=== PATIENT | female | born 1990 | race Caucasian/White ===

== ENCOUNTER 2019-12-07 04:16 | Day surgery (SDC) | payer BC ==
[2019-12-05 15:55] VITALS: BMI 29.0
[2019-12-07] MEDS ORDERED: PROPOFOL 20 ML ONE ×3 (09:04→12:06)
[2019-12-07] MEDS ORDERED: MIDAZOLAM HCL 2 MG/2 ML SINGLE DOSE VIAL ONE (09:04)
--- NOTE | 2019-12-07 10:09 | HP ---
History & Physical Update - History History: No Change (Uterine mass, possible polyp.) - Physical Physical: No Change - Assessment Assessment: No Change - Plan Plan: No Change (Hysteroscopy, excision of uterine mass, D&C.)
[2019-12-07] MEDS ORDERED: ceFAZolin SODIUM 1 GM VIAL IVPB ONE (10:25)
[2019-12-07] MEDS ORDERED: ONDANSETRON 4 MG/2 ML VIAL IVPUSH PRN (10:27)
[2019-12-07] MEDS ORDERED: oxyCODONE HCL 5 MG TABLET PO PRN ×2 (10:27)
[2019-12-07] MEDS ORDERED: LACTATED RINGERS SOLUTION 1,000 ML IV SCH (10:30)
--- NOTE | 2019-12-07 11:14 | OP ---
Operative Note - Note: Operative Date: 12/07/19 Pre-Operative Diagnosis: Endometrial polyp Operation: Hysteroscopy, polypectomy, D&C Findings: Uterus was sounded to 10cm. Several endometrial polyps, both Fallopian tube ostia were visualized. Post-Operative Diagnosis: Same as Pre-op Surgeon: Eliceo Recinos Anesthesiologist/MANAGER OF COMPLIANCE: Naresh Ivan Anesthesia: General Specimens Removed: Endometrial polyps, endometrial curettings Estimated Blood Loss (mls): 10 Blood Volume Replaced (mls): 0 Fluid Volume Replaced (mls): 800 Operative Report Dictated: Yes
--- NOTE | 2019-12-07 11:56 | OP ---
DATE OF OPERATION: 12/07/2019 PREOPERATIVE DIAGNOSIS: Endometrial polyp. POSTOPERATIVE DIAGNOSIS: Endometrial polyp. PROCEDURE: Hysteroscopy, polypectomy, dilation and curettage. SURGEON: Calros Recinos MD ANESTHESIOLOGIST: Naresh Ivan MD ANESTHESIA: General. COMPLICATIONS: None. ESTIMATED BLOOD LOSS: 10 mL. INTRAVENOUS FLUIDS: 800 mL. PATHOLOGY: Endometrial polyps, endometrial curettings. FINDINGS: Examination under anesthesia revealed an anteverted uterus with no pelvic or adnexal masses. The uterus was noted to be freely mobile within the pelvis. Hysteroscopy revealed a slightly enlarged uterine cavity. The uterus sounded to 10 cm. During hysteroscopy, several endometrial polyps were noted. Both fallopian tube ostia were visualized and appeared to be within normal limits. PROCEDURE DESCRIPTION: The patient was met preoperatively. The risks, benefits, alternatives of surgery were discussed in detail. The consent form was reviewed and discussed. All questions were answered. The patient verbalized her understanding and requested to proceed with the surgery. The patient was then brought to the OR with the IV running. She was placed on the surgical table in the supine position. General anesthesia was achieved without difficulty. The patient was then placed in a dorsal lithotomy position using adjustable David stirrups. She was examined under anesthesia, with the findings as described above. The patient was prepped and draped in the usual sterile fashion. The timeout procedure was conducted as per standard protocol. A weighted speculum was then inserted inside the vagina, with good visualization of the cervix. The cervix was grasped with a single-tooth tenaculum. The internal cervical os was dilated gently to accommodate a size 13 Beard dilator. A small diagnostic hysteroscope was gently introduced inside the uterine cavity, with the findings as described above. The uterus was then sounded to 10 cm. The cervical os was then dilated to accommodate a size 23 Beard dilator. A Symphion hysteroscope was introduced into the endometrial cavity. The Symphion hysteroscope was used to resect the endometrial polyps completely. Once this was accomplished, the hysteroscope was removed from the patient. A gentle uterine curettage was performed. All of the tissue was collected and sent to pathology for evaluation. The instruments were removed from the patient. Good hemostasis was noted. The sponge, lap, instrument counts were correct. The patient was returned to supine position. She was transferred to recovery room in stable condition and awake. CARLOSLetty [id number]
[2019-12-07 13:30] VITALS: TEMP 97.7
[2019-12-07 14:21] VITALS: BP 126/74; PULSE 78
--- NOTE | 2019-12-10 17:27 | PATH ---
Surgical Pathology Report Patient Name: HAJA CARMONA [facility]. Rec. #: [id number] /Age/Gender: 1990 (Age: 29) / F Account: [id number] Location: [facility] SURGICAL Taken: 12/07/2019 Received: 12/07/2019 Reported: 12/10/2019 Physicians: Eliceo Recinos M.D. Specimen(s) Received A: ENDOMETRIAL POLYP B: ENDOMETRIAL CURETTINGS Clinical History Polyp of corpus uteri Final Diagnosis A. ENDOMETRIAL POLYP, POLYPECTOMY: POLYPOID FRAGMENTS OF SECRETORY ENDOMETRIUM, BENIGN ENDOCERVICAL TISSUE, AND FIBROMUSCULAR TISSUE. B. ENDOMETRIAL CURETTINGS, DILATION AND CURETTAGE: POLYPOID FRAGMENTS OF SECRETORY ENDOMETRIUM. Electronically Signed Padmini Boggs M.D. Gross Description A. Received in formalin labeled "endometrial polyp," is a 4.2 x 3.7 x 0.5 cm aggregate of conrad soft tissue fragments. The formalin is filtered and the specimen is entirely submitted in 3 cassettes. B. Received in formalin labeled "endometrial curettings," is a 3.8 x 2.0 x 0.4 cm aggregate of conrad red soft tissue fragments admixed with blood clot. The formalin is filtered and the specimen is entirely submitted in 2 cassettes. 12/07/2019 [facility]12/07/2019
== END 2019-12-07 14:21 | disposition home or self-care (01) ==
LOC: JASU-SURG 04:16
PROVIDERS: ATTEND Obstetrics & Gynecology
PROC: 0UB98ZX Excision of Uterus, Via Natural or Artificial Opening Endoscopic, Diagnostic (ICD-10-PCS; principal; 2019-12-07 10:00)
PROC: 0UDB7ZX Extraction of Endometrium, Via Natural or Artificial Opening, Diagnostic (ICD-10-PCS; 2019-12-07 10:00)
DX: N84.0 Polyp of corpus uteri (principal)
CPT/HCPCS: 36415; 84703; 86850; 86900; 86901; 88305-TC; 94760

== ENCOUNTER 2021-06-28 16:15 | Inpatient (IN) | payer BC, OTHER ==
[2021-06-28 17:40] LABS: HEMATOCRIT 33.6 % (32.4-45.2); HEMOGLOBIN 11.1 GM/dL (10.7-15.3); MCH 22.4 pg (25.7-33.7); MEAN CELL VOLUME 67.9 fl (80-96); MEAN PLT VOLUME 7.7 fl (7.5-11.1); PLATELET COUNT 327 10^3/uL (134-434); RBC 4.95 M/mm3 (3.60-5.2); WHITE BLOOD COUNT 8.6 K/mm3 (4.0-10.0)
[2021-06-28 17:54] LABS: CALCIUM 8.3 mg/dL (8.5-10.1)
[2021-06-28 17:55] LABS: ALBUMIN 2.2 g/dl (3.4-5.0)
[2021-06-28 17:57] LABS: EPI CELLS 28 /uL (0-25.1); HYALINE CASTS 10 /uL (0-3.1); URIC ACID 6.7 mg/dL (2.6-7.2); URINE APPEARANCE CLEAR; URINE BACTERIA 7049 /uL (0-1359); URINE BILIRUBIN NEGATIVE (NEGATIVE); URINE COLOR YELLOW; URINE GLUCOSE (UA) NEGATIVE (NEGATIVE); URINE KETONE TRACE (NEGATIVE); URINE LEUK ESTERASE NEGATIVE (NEGATIVE); URINE NITRITE NEGATIVE (NEGATIVE); URINE PROTEIN 2+ (NEGATIVE); URINE RBC 27 /uL (0-23.9); URINE UROBILINOGEN 0.2 mg/dL (0.2-1.0)
[2021-06-28 17:58] LABS: CREATININE 0.7 mg/dL (0.55-1.3)
[2021-06-28 17:59] LABS: BILIRUBIN,TOTAL 0.2 mg/dL (0.2-1)
[2021-06-28 18:00] LABS: TOT PROT 5.9 g/dl (6.4-8.2)
[2021-06-28 19:09] VITALS: BMI 32.1
[2021-06-28] MEDS: ELECTROLYTE-148 SOLN 1,000 ML IV SCH (20:30)
[2021-06-28 20:34] LABS: INR 1.03 (0.83-1.09); PROTHROMBIN TIME (PATIENT) 11.9 SEC (9.7-13.0)
[2021-06-28 20:35] LABS: ACTIVATED PTT 25.9 SECONDS (25.2-36.5)
[2021-06-28] MEDS ORDERED: MAGNESIUM 4GM/H20 - 4 GM/100 ML IVPB IVPB SCH (21:00)
[2021-06-28] MEDS ORDERED: OXYTOCIN 30 UNITS in 0.9% NS 30 UNIT/500 ML INFUS.BAG IVPB ONE (21:25)
[2021-06-28] MEDS ORDERED: MAGNESIUM 4GM/H20 - 4 GM/100 ML IVPB IVPB ONE (21:25)
[2021-06-28] MEDS ORDERED: OXYTOCIN 30 UNITS in 0.9% NS 30 UNIT/500 ML INFUS.BAG IVPB SCH (21:45)
[2021-06-28] MEDS ORDERED: MAGNESIUM SULFATE 20GM/500ML - 20 GM/500 ML INFUS.BAG ONE (22:40)
[2021-06-28] MEDS: MAGNESIUM SULFATE 20GM/500ML - 20 GM/500 ML INFUS.BAG IV SCH (22:45)
[2021-06-29] MEDS ORDERED: AMPICILLIN - 2 GM in SODIUM CHLORIDE 100 ML IVPB ONE (01:29)
[2021-06-29] MEDS ORDERED: AMPICILLIN SODIUM 2 GM VIAL ONE (02:10)
[2021-06-29] MEDS ORDERED: AMPICILLIN SODIUM 1 GM VIAL ONE ×2 (05:05→09:02)
[2021-06-29] MEDS: AMPICILLIN - 1 GM in SODIUM CHLORIDE 100 ML IVPB SCH ×3 (05:15→14:54)
[2021-06-29] MEDS: ELECTROLYTE-148 SOLN 1,000 ML IV SCH ×2 (06:00→07:00)
[2021-06-29 11:13] LABS: POC NITRAZINE POS
[2021-06-29] MEDS ORDERED: morphine SULFATE/PF 1 MG/2 ML (2cc Syringe - QUVA) ONE (13:56)
[2021-06-29] MEDS ORDERED: SUCCINYLCHOLINE CHLORIDE 200 MG/10 ML SYRINGE ONE (13:57)
[2021-06-29] MEDS ORDERED: PROPOFOL 20 ML ONE (13:57)
[2021-06-29] MEDS ORDERED: ACETAMINOPHEN 325 MG TABLET (FP) PO PRN (15:36)
[2021-06-29] MEDS ORDERED: SENNOSIDES/DOCUSATE COMBO (SENNA PLUS) TABLET (UD) PO PRN (15:36)
[2021-06-29] MEDS ORDERED: IBUPROFEN 800 MG/8 ML IJ IVPB PRN (15:36)
[2021-06-29] MEDS ORDERED: CITRIC ACID/SODIUM CITRATE 30 ML UNIT-DOSE CUP PO ONE (15:40)
[2021-06-29 16:08] LABS: CORD BASE EXCESS -3.9 mmol/L (0-2); CORD pH 7.361 (7.14-7.44)
[2021-06-29 16:40] LABS: CORD HCO3 22.8 mmHg (20-29); CORD PCO2 52.7 mmHg (30-78); CORD pH 7.254 (7.14-7.44)
[2021-06-29] MEDS ORDERED: IBUPROFEN 800 MG/8 ML IJ IVPB ONE (17:08)
[2021-06-29] MEDS ORDERED: OXYTOCIN 20 UNITS in 0.9% NS 20 UNIT/1,000 ML INFUS.BAG IV ONE (17:09)
[2021-06-29] MEDS: OXYTOCIN 20 UNITS in 0.9% NS 20 UNIT/1,000 ML INFUS.BAG IV SCH (17:20)
[2021-06-29] MEDS ORDERED: ACETAMINOPHEN INJECTION 100 ML IVPB ONE (19:05)
[2021-06-29 19:06] LABS: SARS-CoV-2 NAA Not Detected (Not Detected)
[2021-06-29] MEDS ORDERED: ACETAMINOPHEN 1000 MG/100 ML BAG IVPB ONE (19:15)
[2021-06-29] MEDS ORDERED: MAGNESIUM SULFATE 20GM/500ML - 20 GM/500 ML INFUS.BAG ONE (20:15)
[2021-06-29] MEDS: MAGNESIUM SULFATE 20GM/500ML - 20 GM/500 ML INFUS.BAG IV SCH (21:00)
[2021-06-30] MEDS ORDERED: oxyCODONE HCL 5 MG TABLET ONE (05:07)
[2021-06-30] MEDS: oxyCODONE HCL 5 MG TABLET PO PRN ×2 (05:11→20:06)
[2021-06-30] MEDS ORDERED: OXYTOCIN 20 UNITS in 0.9% NS 20 UNIT/1,000 ML INFUS.BAG IV ONE (07:20)
[2021-06-30] MEDS: OXYTOCIN 20 UNITS in 0.9% NS 20 UNIT/1,000 ML INFUS.BAG IV SCH ×2 (07:33→17:28)
[2021-06-30] MEDS ORDERED: IBUPROFEN 600 MG TABLET (FP) PO ONE ×2 (10:15→15:18)
[2021-06-30] MEDS: IBUPROFEN 600 MG TABLET (FP) PO PRN ×3 (10:21→22:35)
[2021-06-30] MEDS: PRENATAL VITAMINS W/ FOLIC ACID TABLET (FP) PO SCH (10:50)
[2021-06-30] MEDS: ENOXAPARIN NA (PORCINE) 40 MG/0.4 ML DISP.SYRIN SQ SCH (10:57)
[2021-06-30 11:42] LABS: BASO % 0.2 % (0-2.0); EOS % 0.1 % (0-4.5); HEMOGLOBIN 10.5 GM/dL (10.7-15.3); LYMPH % 18.4 % (8-40); MCH 21.5 pg (25.7-33.7); MCHC 31.8 g/dl (32.0-36.0); MEAN CELL VOLUME 67.6 fl (80-96); MEAN PLT VOLUME 7.3 fl (7.5-11.1); MONO % 4.1 % (3.8-10.2); NEUT % 77.2 % (42.8-82.8); PLATELET COUNT 282 10^3/uL (134-434); RBC 4.89 M/mm3 (3.60-5.2); RDW 16.8 % (11.6-15.6); WHITE BLOOD COUNT 11.7 K/mm3 (4.0-10.0)
[2021-06-30 13:22] LABS: ANISOCYTOSIS 1+; MACROCYTOSIS 0
[2021-06-30 13:52] LABS: PLATELET ESTIMATE ADEQUATE
[2021-06-30] MEDS ORDERED: BISACODYL 10 MG SUPP.RECT RC PRN (15:36)
[2021-06-30] MEDS: SIMETHICONE 80 MG TAB.CHEW (FP) PO PRN (20:07)
[2021-06-30] MEDS: ELECTROLYTE-148 SOLN 1,000 ML IV SCH (23:41)
[2021-07-01] MEDS: NIFEdipine E.R. 30 MG TABLET PO SCH ×2 (08:08→10:22)
[2021-07-01] MEDS: PRENATAL VITAMINS W/ FOLIC ACID TABLET (FP) PO SCH (09:36)
[2021-07-01] MEDS: IBUPROFEN 600 MG TABLET (FP) PO PRN ×3 (09:37→20:07)
[2021-07-01] MEDS: SIMETHICONE 80 MG TAB.CHEW (FP) PO PRN ×3 (09:38→20:07)
[2021-07-01] MEDS: ENOXAPARIN NA (PORCINE) 40 MG/0.4 ML DISP.SYRIN SQ SCH (09:38)
[2021-07-02] MEDS: IBUPROFEN 600 MG TABLET (FP) PO PRN (02:38)
[2021-07-02 09:19] LABS: BASO % 0.3 % (0-2.0); EOS % 1.5 % (0-4.5); HEMATOCRIT 30.7 % (32.4-45.2); HEMOGLOBIN 9.7 GM/dL (10.7-15.3); LYMPH % 30.7 % (8-40); MCH 21.5 pg (25.7-33.7); MCHC 31.8 g/dl (32.0-36.0); MEAN CELL VOLUME 67.7 fl (80-96); MEAN PLT VOLUME 7.5 fl (7.5-11.1); MONO % 5.6 % (3.8-10.2); NEUT % 61.9 % (42.8-82.8); PLATELET COUNT 298 10^3/uL (134-434); RBC 4.53 M/mm3 (3.60-5.2); RDW 17.1 % (11.6-15.6); WHITE BLOOD COUNT 10.1 K/mm3 (4.0-10.0)
[2021-07-02] MEDS: ENOXAPARIN NA (PORCINE) 40 MG/0.4 ML DISP.SYRIN SQ SCH (10:12)
[2021-07-02] MEDS: PRENATAL VITAMINS W/ FOLIC ACID TABLET (FP) PO SCH (10:13)
[2021-07-02] MEDS: NIFEdipine E.R. 30 MG TABLET PO SCH (10:13)
[2021-07-02] MEDS: oxyCODONE HCL 5 MG TABLET PO PRN ×2 (14:55→21:01)
[2021-07-02] MEDS: SIMETHICONE 80 MG TAB.CHEW (FP) PO PRN (21:00)
[2021-07-03 08:05] VITALS: BP 139/98
[2021-07-03] MEDS: ENOXAPARIN NA (PORCINE) 40 MG/0.4 ML DISP.SYRIN SQ SCH (09:02)
[2021-07-03] MEDS: PRENATAL VITAMINS W/ FOLIC ACID TABLET (FP) PO SCH (09:03)
[2021-07-03] MEDS: NIFEdipine E.R. 30 MG TABLET PO SCH (09:03)
[2021-07-03] MEDS: IBUPROFEN 600 MG TABLET (FP) PO PRN (09:49)
[2021-07-03 12:47] VITALS: PULSE 106; TEMP 98.1
== END 2021-07-03 15:45 | disposition home or self-care (01) | DRG 788 ==
LOC: JDEL 16:15 → JLDR 18:15 → J3W 06-30 17:30
PROVIDERS: ADMIT Obstetrics & Gynecology; ATTEND Obstetrics & Gynecology
PROC: 10D00Z1 Extraction of Products of Conception, Low, Open Approach (ICD-10-PCS; principal; 2021-06-29)
DX: O14.14 Severe pre-eclampsia complicating childbirth (principal); O36.5930 Maternal care for other known or suspected poor fetal growth, third trimester, not applicable or unspecified; O42.013 Preterm premature rupture of membranes, onset of labor within 24 hours of rupture, third trimester; O61.0 Failed medical induction of labor; O99.214 Obesity complicating childbirth; E66.9 Obesity, unspecified; Z3A.35 35 weeks gestation of pregnancy; Z37.0 Single live birth
CPT/HCPCS: 36415; 36600; 59025; 80053; 81003; 82570; 82803; 83735; 83986-QW; 84156; 84550; 85025; 85027; 85610; 85730; 86762; 86780; 86850; 86900; 86901; 87340; 88307-TC; C9803; U0003; U0005